=== PATIENT | female | born 1990 | race Caucasian/White ===

== ENCOUNTER 2018-06-26 09:49 | Emergency (ER) | payer OTHER ==
[~2018-06-26] VITALS: Wt 63.9 kg
[2018-06-26 09:52] VITALS: Wt 63.9 kg
[2018-06-26] MEDS ORDERED: KETOROLAC 30 MG INJ IV STA (10:35)
[2018-06-26] MEDS ORDERED: morphine 4 MG/ML VIAL IV STA (10:35)
[2018-06-26] MEDS ORDERED: ONDANSETRON 4 MG INJ IV STA ×2 (10:35→13:45)
--- NOTE | 2018-06-26 10:38 | ERD ---
ER Documentation Chief Complaint Chief Complaint r. flank pain HPI This is a 28-year-old female that presents to the emergency department complaining of 48 hours of severe right flank pain. She states the pain is persistent. She is expressing frequency urgency and dysuria. She had no fevers or shaking or chills. She takes Aleve which improves her pain but once the medication wears off she states the flank pain returns to 10 out of 10 in intensity. She indicates that roughly 1 month ago she had similar symptoms and was diagnosed with pyelonephritis. She completed 10 days of antibiotics and afterwards her symptoms had improved until 48 hours ago. She denies any fever shaking or chills. There is no alleviating or exacerbating factors to the pain. She denies any shortness of breath at rest or exertion. She denies any abnormal urethral discharge and no STD risk factors ROS All systems reviewed and are negative except as per history of present illness. Medications Home Meds Active Scripts Ibuprofen* (Motrin*) 600 Mg Tab, 600 MG PO Q6H PRN for PAIN AND OR ELEVATED TEMP, #30 TAB Prov:BIANKA MOYER MD 06/26/18 Cephalexin* (Keflex*) 500 Mg Capsule, 500 MG PO QID for 10 Days, CAP Prov:BIANKA MOYER MD 06/26/18 Allergies Allergies: Coded Allergies: No Known Allergy (Unverified , 06/26/18) PMhx/Soc History of Surgery: No Anesthesia Reaction: No Hx Neurological Disorder: No Hx Respiratory Disorders: No Hx Cardiac Disorders: No Hx Psychiatric Problems: No Hx Miscellaneous Medical Probl: No Hx Alcohol Use: No Hx Substance Use: No Hx Tobacco Use: No Smoking Status: Never smoker Physical Exam Vitals Vital Signs Date Temp Pulse Resp B/P (MAP) Pulse Ox O2 O2 Flow FiO2 Time Delivery Rate 06/26/18 97.8 100 18 106/78 100 Room Air 13:30 (87) 06/26/18 97.2 101 20 124/81 100 09:52 (95) Physical Exam Constitutional:Well-developed. Well-nourished. Patient appeared to be in a significant amount discomfort secondary to pain HEENT:Normocephalic. Atraumatic.Pupils were equal round reactive to light. Moist mucous membranes.No tonsillar exudates. Neck: No nuchal rigidity. No lymphadenopathy. No posterior cervical spine tenderness or step-offs. Respiratory: Not using accessory muscles of respiration.Lungs were clear to auscultation bilaterally. No rhonchi. No rales. No wheezing. Cardiovascular: Regular rate regular rhythm.No murmurs. No rubs were appreciated.S1, S2 normal. Distal pulses are palpable 2+ bilaterally. GI: Abdomen was soft. Right CVA tenderness. No tenderness in the right lower quadrant over McBurney's point. Psoas sign negative. Obturator sign negative. Non Distended. No pulsatile abdominal masses or bruits. No rebound. No guarding. Bowel sounds were present and normal. Muscle skeletal: Full range of motion of both the upper and lower extremities bilaterally.Normal muscle tone.No assymetrical calf tenderness or swelling. Skin: No petechia, no purpura. No lesions on the palms or the soles of the feet. No maculopapular rash. NEURO: Patient was alert, awake, orientated x3.No facial droop. Gait observed and normal with no ataxia.Speech had regular rate and rhythm. No focal neurological deficits. Result Diagram: 06/26/18 1039 06/26/18 1039 Results 24 hrs Laboratory Tests Test 06/26/18 10:35 06/26/18 10:39 POC Beta HCG, Qualitative NEGATIVE White Blood Count 15.3 10^3/ul Red Blood Count 4.46 10^6/ul Hemoglobin 13.3 g/dl Hematocrit 40.4 % Mean Corpuscular Volume 90.6 fl Mean Corpuscular Hemoglobin 29.8 pg Mean Corpuscular Hemoglobin Concent 32.9 g/dl Red Cell Distribution Width 13.0 % Platelet Count 263 10^3/UL Mean Platelet Volume 9.5 fl Immature Granulocytes % 0.700 % Neutrophils % 79.5 % Lymphocytes % 8.5 % Monocytes % 10.7 % Eosinophils % 0.3 % Basophils % 0.3 % Nucleated Red Blood Cells % 0.0 /100WBC Immature Granulocytes # 0.110 10^3/ul Neutrophils # 12.1 10^3/ul Lymphocytes # 1.3 10^3/ul Monocytes # 1.6 10^3/ul Eosinophils # 0.1 10^3/ul Basophils # 0.1 10^3/ul Nucleated Red Blood Cells # 0.0 10^3/ul Prothrombin Time 14.4 Sec Prothrombin Time Ratio 1.1 INR International Normalized Ratio 1.11 Activated Partial Thromboplast Time 38.8 Sec Urine Color USAMA Urine Clarity CLOUDY Urine pH 5.0 Urine Specific [place] 1.021 Urine Ketones NEGATIVE mg/dL Urine Nitrite NEGATIVE mg/dL Urine Bilirubin NEGATIVE mg/dL Urine Urobilinogen 2+ mg/dL Urine Leukocyte Esterase 2+ Ammon/ul Urine Microscopic RBC 49 /HPF Urine Microscopic WBC 114 /HPF Urine Squamous Epithelial Cells FEW /HPF Urine Bacteria FEW /HPF Urine Mucus MANY /HPF Urine Hemoglobin 2+ mg/dL Urine Glucose NEGATIVE mg/dL Urine Total Protein 1+ mg/dl Sodium Level 142 mmol/L Potassium Level 3.4 mmol/L Chloride Level 100 mmol/L Carbon Dioxide Level 28 mmol/L Anion Gap 14 Blood Urea Nitrogen 10 mg/dl Creatinine 0.63 mg/dl Est Glomerular Filtrat Rate mL/min > 60 mL/min Glucose Level 69 mg/dl Calcium Level 9.2 mg/dl Total Bilirubin 0.7 mg/dl Direct Bilirubin 0.00 mg/dl Indirect Bilirubin 0.7 mg/dl Aspartate Amino Transf (AST/SGOT) 135 IU/L Alanine Aminotransferase (ALT/SGPT) 153 IU/L Alkaline Phosphatase 310 IU/L Total Protein 7.2 g/dl Albumin 4.1 g/dl Globulin 3.10 g/dl Albumin/Globulin Ratio 1.32 Current Medications Medications Dose Sig/Wilson Start Time Status Last (Trade) Ordered Route PRN Stop Time Admin Dose Reason Admin Morphine 4 mg ONCE STAT 06/26/18 DC 06/26/18 Sulfate IV 10:35 10:48 (morphine) 06/26/18 10:36 Ondansetron 4 mg ONCE STAT 06/26/18 DC 06/26/18 HCl (Zofran IV 10:35 10:48 Inj) 06/26/18 10:36 Ketorolac 30 mg ONCE STAT 06/26/18 DC 06/26/18 Tromethamine IV 10:35 10:49 (Toradol) 06/26/18 10:36 Ceftriaxone 50 ml @ ONCE ONCE 06/26/18 DC 06/26/18 Sodium 100 mls/hr IVPB 12:30 12:33 06/26/18 12:59 Ondansetron 4 mg ONCE STAT 06/26/18 DC 06/26/18 HCl (Zofran IV 13:45 13:53 Inj) 06/26/18 13:50 Procedures/MDM This patient presented to the emergency department with abdominal pain and was seen and evaluated by myself. My differential diagnosis included but was not limited to abdominal aortic aneurysm, appendicitis, pancreatitis, perforated peptic ulcer, perforated viscus, Boerhaaves syndrome or visceral pain such as diverticulitis, DKA, esophagitis, hepatitis or bowel obstruction. The patient was placed on a court recording monitor, continuous pulse oximetry, and IV access was established by nursing staff. The patient was given intravenous morphine and Zofran I did obtain a CT scan the patient's abdomen due to her right flank tenderness. This was reviewed by the radiologist myself and indicated the followin. 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 No hydronephrosis bilaterally. No that there is mild to moderate left perirenal stranding and induration consistent with inflammatory changes and rule out pyelonephritis. 2. 1.3 cm lateral inferior left renal cortex hyper dense nodule likely a hemorrhagic/proteinaceous cyst. Follow-up is suggested. No other intra masses bilaterally. 3. Ill-defined low density in the left adnexa and rule out left ovarian cyst. 4. Mild free fluid in the cul-de-sac. Negative free air or abscess. 5. Moderate stool burden throughout the colon and rule out constipation. 6. Numerous gallstones without gallbladder wall thickening, pericholecystic fluid or biliary ductal dilation. Observation Note: Time: 4 hours Family Hx: No Hypertension Evaluation: Multiple exams showed improving symptoms and no evidence of intractable vomiting or sepsis. The patient did have pyelonephritis from my clinical impression. She received IV ceftriaxone. She also received morphine and Toradol and had complete resolution of her pain. She was able to tolerate oral intake. She felt comfortable being discharged home. She does not remember the antibiotic she had taken previously but stated she believes it was Cipro and therefore the patient will be sent home with Keflex. The patient was discharged home in fair condition. They were instructed to return to the emergency department at any time if there was any worsening of their condition. The patient stated they would follow up with their PCP in the next 24-48 hours to initiate a suitable medication regimen under the care of their PCP as well as to allow their PCP to monitor any drug reactions. The patient was discharged home with prescriptions after they gave informed consent to the new medication. They were also fully informed by myself on the adverse effects and adverse drug interactions in order to provide adequate safeguards to prevent possible adverse reactions to medications. Departure Diagnosis: Primary Impression: Pyelonephritis Condition: BIANKA Castro MD Jun 26, 2018 10:38
[2018-06-26] MEDS ORDERED: CEFTRIAXONE 1 GM/50 ML (PMX) 50 ML IVPB ONE (12:30)
[2018-06-26] MEDS ORDERED: IBUP-1542 PO (13:53)
[2018-06-26] MEDS ORDERED: CEPH-443 PO (13:53)
[2018-06-26 14:42] VITALS: BP 102/82; PULSE 98; RESP 16
== END 2018-06-26 14:45 | disposition home or self-care (01) ==
LOC: E/R 09:49
DX: N12 Tubulo-interstitial nephritis, not specified as acute or chronic (principal)
CPT/HCPCS: 74176; 80053; 81001; 81025; 85025; 85610; 85730; 87086; 96374; 96375; 96376; J0696; J1885; J2270; J2405; Z7502; Z7610